=== PATIENT | male | born 1980 | race American Indian/Alaskan Native ===

== ENCOUNTER 2016-09-05 19:21 | Emergency (ER) | payer SELFPAY ==
[2016-09-05 20:16] VITALS: BMI 29.2
[2016-09-05 20:17] VITALS: TEMP 99.1
[2016-09-05] MEDS ORDERED: Clindamycin 300 MG in Sodium Chloride 0.9% 50 ML IVPB STA (20:36)
--- NOTE | 2016-09-05 20:40 | ED PDOC ---
Arrival/HPI - General Chief Complaint: ENT Problem Time Seen by Provider: 09/05/16 20:30 Historian: Patient - History of Present Illness Narrative History of Present Illness (Text): 09/05/16 20:40 Poonam Wakefield is a 35 year old male who presents to the Emergency department complaining of right-sided upper tooth abscess. Patientstates he cracked his right upper posterior tooth last week and developed right-sided facial swelling and pain to the area. Patient denies any fever, chills, headache, dizziness, nausea, vomiting, or any other complaints. Time/Duration: Other (1 week) Symptom Onset: Gradual Symptom Course: Unchanged Activities at Onset: Rest, Light Modifying Factors (Text): none Context: Home Associated Symptoms (Text): right-sided upper tooth abscess, right-sided facial swelling with pain Past Medical History - Provider Review Nursing Documentation Reviewed: Yes - Infectious Disease Hx of Infectious Diseases: None - Tetanus Immunization Tetanus Immunization: Unknown - Cardiac Hx Cardiac Disorders: No - Pulmonary Hx Respiratory Disorders: Yes Hx Asthma: Yes - Psychiatric Hx Substance Use: No - Anesthesia Hx Anesthesia: No Family/Social History - Physician Review Nursing Documentation Reviewed: Yes Family/Social History: No Known Family HX Smoking Status: Light Smoker < 10 Cigarettes Daily Hx Alcohol Use: Yes Frequency of alcohol use: Few days per week Hx Substance Use: No Allergies/Home Meds Allergies/Adverse Reactions: Allergies red (food color) Allergy (Verified 06/02/16 18:11) RASH Beef Containing Products Adverse Reaction (Verified 09/05/16 20:21) URTICARIA Home Medications: Home Meds Medication Instructions Recorded Confirmed Albuterol HFA [Ventolin HFA 90 0.09 mg IH PRN PRN 06/02/16 06/02/16 mcg/actuation (8 g)] Review of Systems - Physician Review All systems were reviewed & negative as marked: Yes - Review of Systems Constitutional: Normal. absent: Fevers Eyes: Normal ENT: Other (+upper posterior tooth abscess) Respiratory: Normal. absent: SOB, Cough Cardiovascular: Normal Gastrointestinal: Normal. absent: Abdominal Pain, Diarrhea, Nausea, Vomiting Genitourinary Male: Normal. absent: Dysuria, Frequency, Hematuria, Urinary Output Changes Musculoskeletal: Normal. absent: Back Pain, Neck Pain Skin: Other (+right-sided facial swelling) Neurological: Normal. absent: Headache, Dizziness Endocrine: Normal Hemo/Lymphatic: Normal Psychiatric: Normal Physical Exam Vital Signs Reviewed: Yes Vital Signs Temp Pulse Resp BP Pulse Ox 09/05/16 22:49 81 16 143/89 98 09/05/16 20:24 145/97 H 09/05/16 20:16 99.1 F 79 18 100 Temperature: Afebrile Blood Pressure: Normal Pulse: Regular Respiratory Rate: Normal Appearance: Positive for: Well-Appearing, Non-Toxic, Comfortable Pain Distress: None Mental Status: Positive for: Alert and Oriented X 3 - Systems Exam Head: Present: Normocephalic, Swelling (Right-sided facial swelling) Pupils: Present: PERRL Extroacular Muscles: Present: EOMI Conjunctiva: Present: Normal Ears: Present: Normal, NORMAL TM, Normal Canal Mouth: Present: Moist Mucous Membranes. No: Normal Teeth (Cracked dentition, right 2nd molar) Pharnyx: Present: Normal. No: ERYTHEMA, EXUDATE, TONSILS ENLARGED, Peritonsilar Swelling, Uvular Deviation, Muffled/Hoarse Voice, Strider, Soft Palate/Uvular Edema Neck: Present: Normal Range of Motion Respiratory/Chest: Present: Clear to Auscultation, Good Air Exchange. No: Respiratory Distress, Accessory Muscle Use Cardiovascular: Present: Regular Rate and Rhythm, Normal S1, S2. No: Murmurs Neurological: Present: GCS=15, CN II-XII Intact, Speech Normal Skin: Present: Warm, Dry, Normal Color. No: Rashes Psychiatric: Present: Alert, Oriented x 3, Normal Insight, Normal Concentration Medical Decision Making ED Course and Treatment: 09/05/16 20:40 Impression: 35 year old male complaining of right-sided upper tooth abscess. Differential Diagnosis include but are not limited to: abscess vs. cracked tooth Plan: -- CT Maxillofacial w/o contrast -- Cleocin -- Reassess and disposition Progress Notes: 09/05/16 22:32 Reviewed radiology, CT Maxillofacial shows: Evaluation for developing abscess Limited without contrast. Right facial soft tissue swelling. Adenopathy, asymmetric enlargement of right sided level IB nodes. Mild paranasal sinus mucosal thickening, most notable in the right maxillary sinus. Dental disease with periapical lucency, most severe involving the right maxillary 2nd molar. 09/05/16 23:05 On re-evaluation, the patient feels better and is in no acute distress. I have discussed the results and plan with the patient, who expresses understanding. Patient in agreement with plan to discharged home. Patient is stable for discharge. Patient was instructed to follow up with physician/dentist/clinic in 1-2 days or return if symptoms worsen or new concerning symptoms arise - RAD Interpretation Narrative RAD Interpretations (Text): CT Maxillofacial shows: Bones/joints: No acute fracture. Soft tissues: Evaluation limited without contrast. Right facial soft tissue swelling. Adenopathy, asymmetric enlargement of right sided level IB nodes. Orbits: Unremarkable as visualized. Sinuses: Mild paranasal sinus mucosal thickening, most notable in the right maxillary sinus. No airfluid levels. Dental disease with periapical lucency, most severe involving the right maxillary 2nd molar. IMPRESSION: Evaluation for developing abscess Limited without contrast. Right facial soft tissue swelling. Adenopathy, asymmetric enlargement of right sided level IB nodes. Mild paranasal sinus mucosal thickening, most notable in the right maxillary sinus. Dental disease with periapical lucency, most severe involving the right maxillary 2nd molar. Radiology Orders: 09/05/16 20:35 MAXILLOFACIAL W/O CONTRAST [CT] Stat Agriculture Engineer: Radiologist - Medication Orders Current Medication Orders: Discontinued Medications Clindamycin Phosphate 300 mg/ (Sodium Chloride) 52 mls @ 104 mls/hr IVPB STAT STA PRN Reason: Protocol Stop: 09/05/16 21:05 Last Admin: 09/05/16 21:41 Dose: 104 MLS/HR eMAR Start Stop Document 09/05/16 21:41 GMD (Rec: 09/05/16 21:41 GMD [facility] [id number] Intravenous Solution Start Date 09/05/16 Start Time 21:41 End Date 09/05/16 End time 22:11 Total Infusion Time 30 Tramadol HCl (Ultram) 50 mg PO STAT STA Stop: 09/05/16 22:57 Last Admin: 09/05/16 23:08 Dose: 50 MG - Pratimaibe Statement The provider has reviewed the documentation as recorded by the Emanuel Gomes Provider Attestation: All medical record entries made by the Emanuel were at my direction and personally dictated by me. I have reviewed the chart and agree that the record accurately reflects my personal performance of the history, physical exam, medical decision making, and the department course for this patient. I have also personally directed, reviewed, and agree with the discharge instructions and disposition. Disposition/Present on Arrival - Present on Arrival Any Indicators Present on Arrival: No History of DVT/PE: No History of Uncontrolled Diabetes: No Urinary Catheter: No History of Decub. Ulcer: No History Surgical Site Infection Following: None - Disposition Have Diagnosis and Disposition been Completed?: Yes Diagnosis: Dental abscess Disposition: HOME/ ROUTINE Disposition Time: 22:50 Condition: GOOD Discharge Instructions (ExitCare): Dental Abscess (ED) Additional Instructions: follow up with dentist in am Prescriptions: Clindamycin [Cleocin] 300 mg PO QID #28 cap Tramadol HCl [Ultram] 50 mg PO QID #8 tab Referrals: Blas Escobar DMD [Staff Provider] - Follow up with primary
--- NOTE | 2016-09-05 22:30 | CT ---
EXAM: CT Maxillofacial Without Intravenous Contrast CLINICAL HISTORY: 35 years old, male; Pain; Maxilla pain; Additional info: R/O abscess TECHNIQUE: Axial computed tomography images of the face without intravenous contrast. This CT exam was performed using one or more of the following dose reduction techniques: automated exposure control, adjustment of the mA and/or kV according to patient size, and/or use of iterative reconstruction technique. Coronal and sagittal reformatted images were created and reviewed. COMPARISON: No relevant prior studies available. FINDINGS: Bones/joints: No acute fracture. Soft tissues: Evaluation limited without contrast. Right facial soft tissue swelling. Adenopathy, asymmetric enlargement of right sided level IB nodes. Orbits: Unremarkable as visualized. Sinuses: Mild paranasal sinus mucosal thickening, most notable in the right maxillary sinus. No air-fluid levels. Dental disease with periapical lucency, most severe involving the right maxillary 2nd molar. IMPRESSION: Evaluation for developing abscess Limited without contrast. Right facial soft tissue swelling. Adenopathy, asymmetric enlargement of right sided level IB nodes. Mild paranasal sinus mucosal thickening, most notable in the right maxillary sinus. Dental disease with periapical lucency, most severe involving the right maxillary 2nd molar.
[2016-09-05 22:51] VITALS: BP 143/89; PULSE 81; RESP 16; O2SAT 98
== END 2016-09-05 23:09 | disposition home or self-care (01) ==
LOC: ED 19:21
DX: K04.7 Periapical abscess without sinus (principal)

== ENCOUNTER 2016-10-29 01:32 | Emergency (ER) | payer SELFPAY ==
[2016-10-29 01:46] VITALS: BMI 29.8
--- NOTE | 2016-10-29 01:49 | ED PDOC ---
Arrival/HPI - General Chief Complaint: Respiratory Distress Time Seen by Provider: 10/29/16 01:42 Historian: Patient - History of Present Illness Narrative History of Present Illness (Text): 10/29/16 01:48 Poonam Wakefield is a 36 year old male, whose past medical history includes asthma, who presents to the Emergency department complaining of shortness of breath, cough, and chest discomfort with deep inspiration tonight. Patient states symptoms are consistent with his usual asthma symptoms and reports he used his inhaler at home with no significant relief. Patient denies any fever, chills, nausea, vomiting, diarrhea, urinary symptoms, back pain, neck pain, headache, dizziness, or any other complaints. Time/Duration: Other (tonight) Symptom Onset: Gradual Symptom Course: Unchanged Activities at Onset: Rest, Light Context: Home Past Medical History - Provider Review Nursing Documentation Reviewed: Yes - Infectious Disease Hx of Infectious Diseases: None - Tetanus Immunization Tetanus Immunization: Unknown - Cardiac Hx Cardiac Disorders: No - Pulmonary Hx Respiratory Disorders: Yes Hx Asthma: Yes - Psychiatric Hx Substance Use: No - Anesthesia Hx Anesthesia: No Family/Social History - Physician Review Nursing Documentation Reviewed: Yes Family/Social History: No Known Family HX Smoking Status: Former Smoker Hx Alcohol Use: Yes Frequency of alcohol use: Socially Hx Substance Use: No Allergies/Home Meds Allergies/Adverse Reactions: Allergies red (food color) Allergy (Verified 06/02/16 18:11) RASH Beef Containing Products Adverse Reaction (Verified 09/05/16 20:21) URTICARIA Home Medications: Home Meds Medication Instructions Recorded Confirmed Albuterol HFA [Ventolin HFA 90 0.09 mg IH PRN PRN 06/02/16 10/29/16 mcg/actuation (8 g)] Review of Systems - Physician Review All systems were reviewed & negative as marked: Yes - Review of Systems Constitutional: Normal. absent: Fevers Eyes: Normal ENT: Normal Respiratory: SOB, Cough Cardiovascular: Chest Pain Gastrointestinal: Normal. absent: Abdominal Pain, Diarrhea, Nausea, Vomiting Genitourinary Male: Normal. absent: Dysuria, Frequency, Hematuria Musculoskeletal: Normal. absent: Back Pain, Neck Pain Skin: Normal. absent: Rash Neurological: Normal. absent: Headache, Dizziness Endocrine: Normal Hemo/Lymphatic: Normal Psychiatric: Normal Physical Exam Vital Signs Reviewed: Yes Vital Signs Temp Pulse Resp BP Pulse Ox 10/29/16 06:13 97.9 F 76 19 129/75 97 10/29/16 05:38 97.9 F 10/29/16 05:14 77 18 127/74 96 10/29/16 03:16 89 19 143/84 94 L 10/29/16 02:45 20 93 L 10/29/16 01:47 98 F 77 18 145/96 H 97 Temperature: Afebrile Blood Pressure: Normal Pulse: Regular Respiratory Rate: Normal Appearance: Positive for: Well-Appearing, Non-Toxic, Comfortable Pain Distress: None Mental Status: Positive for: Alert and Oriented X 3 - Systems Exam Head: Present: Atraumatic, Normocephalic Pupils: Present: PERRL Extroacular Muscles: Present: EOMI Conjunctiva: Present: Normal Mouth: Present: Moist Mucous Membranes Neck: Present: Normal Range of Motion Respiratory/Chest: Present: Wheezes. No: Respiratory Distress, Accessory Muscle Use Cardiovascular: Present: Regular Rate and Rhythm, Normal S1, S2. No: Murmurs Abdomen: Present: Normal Bowel Sounds. No: Tenderness, Distention, Peritoneal Signs Back: Present: Normal Inspection Upper Extremity: Present: Normal Inspection. No: Cyanosis, Edema Lower Extremity: Present: Normal Inspection. No: Edema Neurological: Present: GCS=15, CN II-XII Intact, Speech Normal Skin: Present: Warm, Dry, Normal Color. No: Rashes Psychiatric: Present: Alert, Oriented x 3, Normal Insight, Normal Concentration Medical Decision Making ED Course and Treatment: 10/29/16 01:48 Impression: 36 year old male complaining of shortness of breath, chest discomfort, and cough. Differential Diagnosis include but are not limited to: asthma Plan: -- Duoneb -- CXR -- Reassess and disposition Progress Notes: 10/29/16 03:29 Reviewed radiology, Chest X-ray shows no active disease. 10/29/16 05:18 Reviewed EKG, NSR at 76 bpm[address] Non-specific ST/T wave changes. 10/29/16 05:55 On re-evaluation, the patient feels better and is in no acute distress. I have discussed the results and plan with the patient, who expresses understanding. Patient in agreement with plan to discharged home. Patient is stable for discharge. Patient was instructed to follow up with physician/clinic in 1-2 days or return if symptoms worsen or new concerning symptoms arise. - RAD Interpretation Radiology Orders: 10/29/16 01:55 CHEST PORTABLE [RAD] Stat - Medication Orders Current Medication Orders: Discontinued Medications Albuterol/Ipratropium (Duoneb 3 Mg/0.5 Mg (3 Ml) Ud) 3 ml IH ONCE STA Stop: 10/29/16 01:54 Last Admin: 10/29/16 01:57 Dose: 3 ml Azithromycin (Zithromax) 500 mg PO ONCE STA PRN Reason: Protocol Stop: 10/29/16 05:09 Last Admin: 10/29/16 05:38 Dose: 500 mg Ibuprofen (Motrin Tab) 600 mg PO STAT STA Stop: 10/29/16 05:08 Last Admin: 10/29/16 05:38 Dose: 600 mg Prednisone (Prednisone Tab) 60 mg PO ONCE STA Stop: 10/29/16 05:48 Last Admin: 10/29/16 06:04 Dose: 60 mg - Emanuel Statement The provider has reviewed the documentation as recorded by the Emanuel Gomes All medical record entries made by the Emanuel were at my direction and personally dictated by me. I have reviewed the chart and agree that the record accurately reflects my personal performance of the history, physical exam, medical decision making, and the department course for this patient. I have also personally directed, reviewed, and agree with the discharge instructions and disposition. Disposition/Present on Arrival - Present on Arrival Any Indicators Present on Arrival: No History of DVT/PE: No History of Uncontrolled Diabetes: No Urinary Catheter: No History of Decub. Ulcer: No History Surgical Site Infection Following: None - Disposition Have Diagnosis and Disposition been Completed?: Yes Diagnosis: Asthma, Bronchitis Disposition: HOME/ ROUTINE Disposition Time: 05:49 Patient Plan: Discharge Condition: STABLE Discharge Instructions (ExitCare): Asthma (ED), Acute Bronchitis (ED) Additional Instructions: Take meds as prescribed/follow up with your doctor this week Prescriptions: Ibuprofen [Motrin] 600 mg PO Q6 PRN #12 tab PRN Reason: Pain, Moderate (4-7) predniSONE [Prednisone] 40 mg PO DAILY #10 tab Albuterol HFA [Ventolin HFA 90 mcg/actuation (8 g)] 2 puff IH [id number] PRN #1 puff PRN Reason: Wheezing Azithromycin [Zithromax] 250 mg PO DAILY #4 tab
[2016-10-29] MEDS ORDERED: Albuterol-Ipratrop 3 mg / 0.5 (3 ml) UD IH STA (01:53)
[2016-10-29 05:39] VITALS: TEMP 97.9
[2016-10-29 06:15] VITALS: BP 129/75; PULSE 76; RESP 19; O2SAT 97
--- NOTE | 2016-10-29 08:05 | RAD ---
HISTORY: cough COMPARISON: No prior. FINDINGS: LUNGS: No active pulmonary disease. PLEURA: No significant pleural effusion identified, no pneumothorax apparent. CARDIOVASCULAR: Normal. OSSEOUS STRUCTURES: No significant abnormalities. VISUALIZED UPPER ABDOMEN: Normal. OTHER FINDINGS: None. IMPRESSION: No active disease.
--- NOTE | 2016-10-29 22:40 | CARD ---
APPROVED REPORT EKG Measurement Heart [id number] <Conclusion> Normal sinus rhythm Left axis deviation Nonspecific T wave abnormality Abnormal ECG
== END 2016-10-29 06:19 | disposition home or self-care (01) ==
LOC: ED 01:32
DX: J45.909 Unspecified asthma, uncomplicated (principal); Z87.891 Personal history of nicotine dependence